=== PATIENT | male | born 1950 | race Caucasian/White ===

== ENCOUNTER 2017-01-17 15:41 | Observation (INO) | payer BC, MEDICARE ==
[2017-01-17] MEDS ORDERED: METHYLPREDNISOLONE PF 125MG/VIAL IVP ONE (15:45)
[2017-01-17] MEDS ORDERED: IPRATROPIUM/ALBUTEROL (0.5MG/3MG) NEB INH ONE (15:45)
--- NOTE | 2017-01-17 15:54 | Emergency Department Record ---
History of Present Illness - General Chief Complaint: Difficulty Breathing Stated Complaint: RADHA Time Seen by Provider: 01/17/17 15:43 Source: Patient Mode of Arrival: Wheelchair Limitations: No limitations - History of Present Illness Initial Comments: 66 yo male presents to ED with a CC of difficulty breathing that began around 1: 30 this morning. Patient reports mowing his grass last night prior to his symptoms starting. Patient deneis fevers, chills, or recent illness. 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 Patient reports recent steroid taper that ended 2-3 days ago, nebulizer at home and albuterol puffer at home have not improved his symptoms. MD Complaint: Shortness of breath Onset/Timin -: Hour(s) Severity: Severe Consistency: Constant Improves With: Nothing Worsens With: Exertion Known History Of: COPD Context: Allergen exposure Associated Symptoms: Denies other symptoms Treatments Prior to Arrival: Bronchodilator - Related Data Home Oxygen Therapy: No Home Medications Medication Instructions Recorded Confirmed Last Taken Albuterol Sulfate [Ventolin Hfa] 2 puff INH Q6H 01/17/17 01/17/17 01/17/17 Amlodipine Besylate [Norvasc] 5 mg PO DAILY 01/17/17 01/17/17 01/17/17 Aspirin 81 mg PO DAILY 01/17/17 01/17/17 01/17/17 Atorvastatin Calcium [Atorvastatin 40 mg PO DAILY 01/17/17 01/17/17 01/16/17 Calcium] Clopidogrel Bisulfate [Clopidogrel] 75 mg PO DAILY 01/17/17 01/17/17 01/16/17 Docusate Sodium [Colace] 100 mg PO ASDIR PRN 01/17/17 01/17/17 Unknown Losartan/Hydrochlorothiazide 50 mg PO DAILY 01/17/17 01/17/17 01/17/17 [Losartan-Hctz 50-12.5 mg Tab] Magnesium Oxide [Magnesium] 500 mg PO DAILY 01/17/17 01/17/17 01/17/17 Morphine Sulfate [Morphine Sulfate 15 mg PO Q6HR 01/17/17 01/17/17 01/17/17 ER] Morphine Sulfate [Morphine Sulfate 30 mg PO Q6H 01/17/17 01/17/17 01/17/17 ER] Multivitamin [Multi-Vitamin Daily] 1 each PO DAILY 01/17/17 01/17/17 01/17/17 Naproxen Sodium [Naproxen Sodium 500 mg PO BID 01/17/17 01/17/17 01/17/17 Cr] Sotalol HCl [Sotalol] 80 mg PO DAILY 01/17/17 01/17/17 01/17/17 Tiotropium [place] [Spiriva] 2 puff IN DAILY 01/17/17 01/17/17 01/17/17 Allergies Allergy/AdvReac Type Severity Reaction Status Date / Time No Known Drug Allergies Allergy Verified 01/17/17 16:22 Review of Systems Constitutional: Denies: Chills, Fever, Malaise, Night sweats Eyes: Denies: Eye discharge, Eye pain ENT: Denies: Congestion, Ear pain, Epistaxis Respiratory: Reports: Dyspnea, Wheezes. Denies: Cough Cardiovascular: Reports: Dyspnea on exertion. Denies: Chest pain Endocrine: Denies: Fatigue, Heat or cold intolerance Gastrointestinal: Denies: Abdominal pain, Nausea, Vomiting Genitourinary: Denies: Incontinence, Retention Musculoskeletal: Denies: Arthralgia, Back pain, Gout, Joint swelling Skin: Denies: Bruising, Change in color Neurological: Denies: Abnormal gait, Confusion, Headache, Seizure Psychiatric: Denies: Anxiety Hematological/Lymphatic: Denies: Anemia, Blood Clots Physical Exam - General General Appearance: Alert, Oriented x3, Cooperative, Moderate distress (moderate -severe dyspnea with audible wheezing on examination) Limitations: No limitations - Head Head exam: Atraumatic, Normocephalic, Normal inspection Head exam detail: negative: Abrasion, Contusion, Lindquist's sign, General tenderness, Hematoma - Eye Eye exam: Normal appearance. negative: Conjunctival injection, Periorbital swelling, Periorbital tenderness, Scleral icterus - ENT Ear exam: negative: Auricular hematoma, Auricular trauma Nasal Exam: negative: Active bleeding, Discharge, Dried blood, Foreign body Mouth exam: negative: Drooling, Laceration, Muffled voice, Tongue elevation - Neck Neck exam: Normal inspection. negative: Meningismus, Tenderness - Respiratory Respiratory exam: Prolonged expiratory, Respiratory distress, Wheezes - Cardiovascular Cardiovascular Exam: Regular rate, Normal rhythm, Normal heart sounds - GI/Abdominal GI/Abdominal exam: Soft. negative: Rebound, Rigid, Tenderness - Rectal Rectal exam: Deferred - exam: Deferred - Extremities Extremities exam: negative: Calf tenderness, Pedal edema, Tenderness - Back Back exam: Denies: CVA tenderness (R), CVA tenderness (L) - Neurological Neurological exam: Alert, Oriented X3 - Psychiatric Psychiatric exam: Anxious - Skin Skin exam: Normal color. negative: Abrasion Type of lesion: negative: abrasion Course - Reevaluation(s) Reevaluation #1: 01/17/17 16:04 Patient reassessed following duneb, respiratory distress is greatly improved. Will continue to monitor. Reevaluation #2: 01/17/17 16:12 EKG: NSR 80 Q waves V1, V2, no acute ST-T wave changes Normal axis, normal intervals Previous obtained from Dr. Rod, unchanged from 01/02/17 Reevaluation #3: 01/17/17 16:43 Labs reviewed, CO2 34 (likely secondary to retention), labs are otherwise grossly unremarkable for an acute process. Reevaluation #4: 01/17/17 17:21 BNP resulted 538, Troponin appears normal. Will initiate transfer for pulmonology evaluation. Reevaluation #5: 01/17/17 17:51 Case was discussed with Dr. Schmidt (Pulmonology), does not feel the patient requires transfer for consultation. Will discuss admission with Dr. Garza. Patient was updated on all results and is resting comfortably at this time on 2L NC. Case was discussed with Dr. Garza, will accept admission 01/17/17 17:55 Medical Decision Making - Lab Data Result diagrams: 01/17/17 16:10 01/17/17 16:10 Disposition Disposition: Admit Clinical Impression: COPD exacerbation Disposition: Acute Care Hospital Transfer Decision to Admit: Admit from ER Decision to Admit Date: 01/17/17 Decision to Admit Time: 17:52 Condition: (2) Stable Forms: Patient Portal Access Time of Disposition: 17:54
[2017-01-17] MEDS ORDERED: ALBUTEROL SULFATE (0.083%) 2.5 MG/3 ML NEB INH ONE (16:15)
[2017-01-17 16:20] LABS: BASO % 0.6 % (0-6); EOS % 6.4 % (0-6); GRAN % 51.9 % (47-80); HEMATOCRIT 47.6 % (42.0-52.0); HEMOGLOBIN 15.5 gm/dl (14.0-18.0); LYMPH % 31.3 % (16-45); MEAN CELL VOLUME 99.2 fl (81-97); MEAN CORPUSCULAR HEMOGLOBIN 32.3 pg (27-33); MEAN CORPUSCULAR HGB CONC 32.6 g/dl (32-36); MEAN PLATELET VOLUME 9.4 fl (7.4-10.4); MONO % 9.8 % (0-9); PLATELET COUNT 308 K/uL (130-400); WHITE BLOOD COUNT W/O DIFF 10.2 K/uL (4.2-12.2)
[2017-01-17 16:33] LABS: ALB/GLOB RATIO 1.4 (1.1-1.8); ALBUMIN 4.3 gm/dL (3.5-5.0); ALKALINE PHOSPHATASE 70 U/L (38-126); ALT/SGPT 39 U/L (21-72); ANION GAP 9.1 (7-16); AST/SGOT 30 U/L (17-59); BLOOD UREA NITROGEN 23 mg/dL (9-20); CARBON DIOXIDE 33.9 mmol/L (22-30); CREATININE 0.9 mg/dL (0.66-1.25); EST GLOMERULAR FILTRATION RATE > 60 ml/min; GLUCOSE,RANDOM 114 mg/dL (70-110); TOTAL PROTEIN 7.3 gm/dL (6.3-8.2)
[2017-01-17 17:13] LABS: TROPONIN I < 0.012 ng/mL (0.00-0.034)
[2017-01-17] MEDS ORDERED: 0.9 % SODIUM CHLORIDE 1000ML 1,000 ML IV PRN (19:42)
[2017-01-17] MEDS ORDERED: DOCUSATE SODIUM 100 MG CAPSULE PO PRN ×2 (19:42→20:30)
[2017-01-17] MEDS ORDERED: ACETAMINOPHEN 500 MG TABLET PO PRN (19:42)
[2017-01-17] MEDS ORDERED: ALBUTEROL SULFATE (0.083%) 2.5 MG/3 ML NEB INH PRN ×2 (19:42→20:02)
[2017-01-17] MEDS: IPRATROPIUM/ALBUTEROL (0.5MG/3MG) NEB INH SCH ×2 (20:43→21:08)
[2017-01-17] MEDS ORDERED: AZITHROMYCIN 500 MG in 0.9 % SODIUM CHLORIDE 250ML 250 ML IVPB SCH (21:00)
[2017-01-17] MEDS: CEFTRIAXONE SODIUM 1 GM in 0.9 % SODIUM CHLORIDE 100ML 100 ML IVPB SCH (21:48)
[2017-01-17] MEDS ORDERED: MORPHINE SULFATE 15 MG TABLET.ER PO SCH (22:00)
[2017-01-17] MEDS: SOTALOL HCL 80 MG TABLET PO SCH (22:20)
[2017-01-17] MEDS: NAPROXEN 250 MG TABLET PO SCH (22:20)
[2017-01-17] MEDS: METHYLPREDNISOLONE PF 125MG/VIAL IVP SCH (23:00)
--- NOTE | 2017-01-18 06:55 | RADIOLOGY REPORT ---
EXAM: CHEST, TWO VIEWS HISTORY: DIFFICULTY IN BREATHING. TECHNIQUE: PA and lateral views of the chest were obtained. Comparison: None. FINDINGS: Mild torsion of the aorta. The heart size is at about the upper limits of normal. No definite acute infiltrate seen and no pleural effusion or pneumothorax evident. Hypertrophic spurring in the spine. Postop changes right shoulder. There are probably multiple old right rib fractures present. IMPRESSION: 1. THE HEART SIZE IS AT ABOUT THE UPPER LIMITS OF NORMAL. 2. NO ACUTE INFILTRATE EVIDENT. 3. CHRONIC SKELETAL FINDINGS NOTED ABOVE. JOB NUMBER: [id number] [facility]
[2017-01-18] MEDS: IPRATROPIUM/ALBUTEROL (0.5MG/3MG) NEB INH SCH ×3 (06:56→14:00)
[2017-01-18] MEDS: METHYLPREDNISOLONE PF 125MG/VIAL IVP SCH (06:58)
[2017-01-18] MEDS ORDERED: MORPHINE SULFATE 30MG TABLET.ER PO SCH (08:00)
[2017-01-18] MEDS: CEFTRIAXONE SODIUM 1 GM in 0.9 % SODIUM CHLORIDE 100ML 100 ML IVPB SCH (08:13)
[2017-01-18] MEDS: SOTALOL HCL 80 MG TABLET PO SCH (09:40)
[2017-01-18] MEDS ORDERED: MAGNESIUM OXIDE 400 MG TABLET PO SCH (10:00)
[2017-01-18] MEDS ORDERED: ATORVASTATIN 20 MG TABLET PO SCH (10:00)
[2017-01-18] MEDS ORDERED: CLOPIDOGREL 75MG TABLET PO SCH (10:00)
[2017-01-18] MEDS ORDERED: AMLODIPINE BESYLATE 5MG TAB PO SCH (10:00)
[2017-01-18] MEDS ORDERED: ASPIRIN 81 MG CHEWABLE TABLET PO SCH (10:00)
[2017-01-18] MEDS ORDERED: SOTALOL HCL 80 MG TABLET PO SCH (10:00)
[2017-01-18] MEDS ORDERED: LOSARTAN POTASSIUM 25 MG TABLET PO SCH (10:00)
[2017-01-18] MEDS ORDERED: HYDROCHLOROTHIAZIDE 12.5 MG CAPSULE PO SCH (10:00)
[2017-01-18] MEDS: NAPROXEN 250 MG TABLET PO SCH (12:04)
--- NOTE | 2017-01-18 15:00 | Discharge Note ---
VTE H&P Assessment - Risk for VTE Risk for VTE: Yes Risk Level: Moderate Risk Assessment Date: 01/17/17 Risk Assessment Time: 13:00 VTE Orders Placed or Will Be Placed: Yes Discharge Medications - Discharge Medications Prescriptions: Cephalexin [Keflex] 500 mg PO QID #40 cap Prednisone [Prednisone 10Mg] 10 mg PO ASDIR #30 tab Home Medications: Ambulatory Orders Albuterol Sulfate [Ventolin Hfa] 2 puff INH Q6H 01/17/17 [Last Taken 01/17/17] Amlodipine Besylate [Norvasc] 5 mg PO DAILY 01/17/17 [Last Taken 01/17/17] Aspirin 81 mg PO DAILY 01/17/17 [Last Taken 01/17/17] Atorvastatin Calcium 40 mg PO DAILY 01/17/17 [Last Taken 01/16/17] Clopidogrel Bisulfate [Clopidogrel] 75 mg PO DAILY 01/17/17 [Last Taken 01/16/17 ] Docusate Sodium [Colace] 100 mg PO ASDIR PRN 01/17/17 [Last Taken Unknown] Losartan/Hydrochlorothiazide [Losartan-Hctz 50-12.5 mg Tab] 50 mg PO DAILY 01/17 [Last Taken 01/17/17] Magnesium Oxide [Magnesium] 500 mg PO DAILY 01/17/17 [Last Taken 01/17/17] Morphine Sulfate [Morphine Sulfate ER] 15 mg PO Q6HR 01/17/17 [Last Taken ] Morphine Sulfate [Morphine Sulfate ER] 30 mg PO Q6H 01/17/17 [Last Taken ] Multivitamin [Multi-Vitamin Daily] 1 each PO DAILY 01/17/17 [Last Taken 01/17/17 ] Naproxen Sodium [Naproxen Sodium Cr] 500 mg PO BID 01/17/17 [Last Taken 01/17/17 ] Sotalol HCl [Sotalol] 80 mg PO BID 01/17/17 [Last Taken 01/17/17] Tiotropium [place] [Spiriva] 2 puff IN DAILY 01/17/17 [Last Taken 01/17/17] Acetaminophen [Tylenol 500Mg Tab] 1,000 mg PO Q6H PRN 01/18/17 [Last Taken Unknown] Albuterol Sulfate 0.083% [Neb] 2.5 mg INH RESP.Q2H PRN neb 01/18/17 [Last Taken Unknown] Cephalexin [Keflex] 500 mg PO QID #40 cap 01/18/17 [Last Taken Unknown] Prednisone [Prednisone 10Mg] 10 mg PO ASDIR #30 tab 01/18/17 [Last Taken Unknown ] Discharge Note - Date Date of Discharge Note: 01/18/17 Condition: (2) Stable Forms: Patient Portal Access
[2017-01-18] MEDS ORDERED: ENOXAPARIN 40 MG/0.4 ML SYR SQ SCH (22:00)
--- NOTE | 2017-01-21 10:42 | History and Physical Report ---
DATE OF EVALUATION: 01/17/2017 at 7:36 p.m. DATE OF ADMISSION: 01/17/2017 CHIEF COMPLAINT: Dyspnea. HISTORY OF CHIEF COMPLAINT: This 66-year-old male states he had difficulty breathing for the last couple of hours, more so in the last hour. He came in to the Emergency Department with audible wheezing. He reports no other illness; however, in the last 3 weeks he was seen twice at [facility] ER for dyspnea and treated with antibiotics and steroids. Patient was seen in the Emergency Department by Dr. Casillas and admitted to the hospital with a diagnosis of acute exacerbation of COPD and acute bronchitis. His primary doctor is Dr. Lizzie Fuller. Dr. Schmidt was consulted by phone. He felt the patient could stay here and he could follow up as an outpatient. PAST MEDICAL HISTORY: COPD, chronic back pain. He has had rhizotomies, and he is on narcotics with his chronic back pain. He also has had episodes of atrial fibrillation and ablation x 2, and that is the reason he is on sotalol. He has hypertension and hypercholesterolemia. He has had a heart cath in 2009, and bladder cancer, degenerative joint disease. PAST SURGICAL HISTORY: Tonsillectomy in 1954. Two hernia repairs. Hemorrhoidectomy. Bilateral carpal tunnel. Right shoulder surgery. MEDICATIONS ON ADMISSION: Sotalol 80 mg b.i.d., multivitamins 1 daily, magnesium 500 mg daily, Colace 100 mg daily, aspirin 81 mg daily. Morphine sulfate extended release he has 15 mg at noon and bedtime, 30 mg in the morning and at dinnertime. Ventolin 2 puffs every 6 hours p.r.n. Atorvastatin 40 mg daily. Amlodipine 5 mg daily. Losartan/hydrochlorothiazide 50/12.5 one daily. Plavix 75 mg daily. Naprosyn 500 mg b.i.d. Spiriva 2 puffs daily. ALLERGIES: No known drug allergies. FAMILY PSYCHOSOCIAL HISTORY: He is a former smoker of cigarettes. Stopped in 1978, about a 20 pack-year history. Occasional alcohol use. No drug use. FAMILY HISTORY: Father had heart disease. REVIEW OF SYSTEMS: HEENT: No upper respiratory infection symptoms, cough, cold, or congestion. He does not know what triggered this. It possibly could be cutting the grass this morning. No sore throat or congestion. No epistaxis. Cardiovascular: No chest pain, palpitations, or arrhythmias. Respiratory: Cough, cold, and wheezing. Smoking history 1979 quit. Gastrointestinal: No nausea, vomiting, diarrhea, black stools, or bloody stools. Genitourinary: No dysuria, hematuria, frequency, or burning on urination. Musculoskeletal: He has chronic back pain. He has had rhizotomies and injections, and he is now on narcotics chronically for that. Neurologic: No CVA, paralysis, or paresthesias. Endocrine: No diabetes or thyroid disease. Integument: No rash, ulcers, changes in moles, or yellow skin. PHYSICAL EXAMINATION: VITAL SIGNS: Height is 5'10". Weight 250 pounds. Temperature 97.8. Pulse 75. Blood pressure 120/65. Respiratory rate is 16. Pulse ox 94% on 2 liters nasal cannula. HEENT: Pupils equal, round, and reactive to light and accommodation. Extraocular muscles intact. Throat is clear. Nose is clear. Tympanic membranes [place]. NECK: Supple. No jugular venous distention. No hepatojugular reflux. No carotid bruits. Thyroid is smooth. CARDIOVASCULAR: Regular rate and rhythm without murmurs, clicks, rubs, or gallops. RESPIRATORY: Decreased breath sounds bilaterally. Scant wheezing. ABDOMEN: Soft, nontender, no hepatosplenomegaly. No masses or tenderness. Bowel sounds active. EXTREMITIES: No pitting edema. No cyanosis or clubbing. Full range of motion. Peripheral pulses good. BREASTS: Normal male breasts. GENITALIA: Deferred. RECTAL: Deferred. NEUROLOGIC: Cranial nerves II-XII intact. No gross deficits. Sensation normal. Strength normal. Deep tendon reflexes equal bilaterally. Babinski is negative. MENTAL STATUS: Alert and oriented x3. IMPRESSION: 1. Acute bronchitis. 2. COPD exacerbation. 3. Chronic back pain, using narcotics, morphine sulfate extended release alternating between 15 and 30 mg every 6 hours. PLAN: Rocephin IV 1 gram every 12 hours. Azithromycin 500 mg daily. Solu-Medrol 60 mg every 8 hours. Lovenox 40 mg subcu daily. CERTIFICATE OF NEED: Not necessary because he is an Observation patient at this time. [facility]
--- NOTE | 2017-01-21 10:46 | Discharge Summary ---
DATE OF DISCHARGE: 01/18/2017 at 3 p.m. It is an observation patient. DISCHARGE DIAGNOSES: 1. Acute bronchitis. 2. Acute exacerbation of chronic obstructive pulmonary disease. 3. Chronic back pain and on narcotics. 4. History of atrial fibrillation with ablation therapy and on sotalol. 5. Hypertension. 6. Hypercholesterolemia. 7. Osteoarthritis. REASON FOR HOSPITALIZATION: This is a 66-year-old male who presented to the emergency department with difficulty breathing about 1:30 in the morning. He reports he was mowing the grass last night prior to his symptoms starting. The patient denies fever, chills, or recent illness. Does have a history of COPD for 2 years and has had 2 exacerbations in the past few weeks. 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 The patient reports recent steroid taper that ended 2-3 days ago. Nebulizer at home and albuterol puffer at home have not improved his symptoms. He was given IV Solu-Medrol, started on Rocephin and azithromycin, admitted to the hospital. He is much better on the day of discharge. SIGNIFICANT FINDINGS: Chest x-ray showed the heart size is about the upper limits of normal, no acute infiltrate evident, chronic skeletal findings as noted above. The EKG showing no acute abnormalities, normal sinus rhythm. Laboratory with white count 10,200, hemoglobin 15.5, potassium 4.0, troponin normal at 0.012. His brain natriuretic peptide was normal for his age at 538. THERAPY PROVIDED: The patient was given IV Rocephin x2 or 3 doses, azithromycin 500 mg x2 doses once a day, and he is feeling much better. Solu-Medrol was 60 mg q.8 h. and 125 in the emergency department. HOSPITAL COURSE: We are going to switch him over to oral Keflex 500 mg 4 times a day. Because he was recently on azithromycin, I have decided not to go with another dose or course of azithromycin. We will just go with Keflex 4 times a day and prednisone taper at 40 mg a day for 3 days, 30 mg a day for 3 days, 20 mg a day for 3 days, and 10 mg a day for 3 days. Continue his home medications and follow up with Dr. Fuller. He has an appointment on Monday. He also has a pulmonology appointment on 02/13/2017. I encouraged him to keep those appointments. CC: Lizzie WHITING
== END 2017-01-18 15:35 | disposition home or self-care (01) ==
LOC: ER 15:41 → MEDSURG 18:24
PROVIDERS: ADMIT Emergency Medicine; ATTEND Emergency Medicine
DX: J44.1 Chronic obstructive pulmonary disease with (acute) exacerbation (principal); I10 Essential (primary) hypertension; E78.00 Pure hypercholesterolemia, unspecified; G89.29 Other chronic pain; M54.89 Other dorsalgia
CPT/HCPCS: 93041; 99285 ×2; 94760 ×3; 96374; 85025; 84484; 80053; 83880; 71020; 94640 ×3; 94620; 93005; 93010; G0378 ×2; J3490; 99217; 99220; J0456; J2930; J7050; J7613

== ENCOUNTER 2017-02-03 23:55 | Observation (INO) | payer MEDICARE ==
--- NOTE | 2017-02-04 00:06 | Emergency Department Record ---
History of Present Illness - General Chief Complaint: Shortness of breath Stated Complaint: SOB Time Seen by Provider: 02/04/17 00:05 Source: Patient Mode of Arrival: Ambulatory Limitations: No limitations - History of Present Illness Initial Comments: The patient is here due to having a 2 day hx of SOB. He feels like he cannot get air out and is SOB with walking and wheezy. The patient denies any CP or any chest or back discomfort or any recent cough or congestion. He states this is the 4th episode for this same thing in the last 2 months. He does have a dx of COPD but quit smoking 30 years ago and has not seen a meeting specialist. MD Complaint: Shortness of breath Onset/Timin -: Days(s) Severity: Moderate Improves With: Rest Worsens With: Exertion - Related Data Home Medications Medication Instructions Recorded Confirmed Last Taken Albuterol Sulfate [Ventolin Hfa] 2 puff INH Q6H 01/17/17 02/03/17 01/17/17 Amlodipine Besylate [Norvasc] 5 mg PO DAILY 01/17/17 02/03/17 01/17/17 Aspirin 81 mg PO DAILY 01/17/17 02/03/17 01/17/17 Atorvastatin Calcium 40 mg PO DAILY 01/17/17 02/03/17 01/16/17 Clopidogrel Bisulfate [Clopidogrel] 75 mg PO DAILY 01/17/17 02/03/17 01/16/17 Docusate Sodium [Colace] 100 mg PO ASDIR PRN 01/17/17 02/03/17 Unknown Losartan/Hydrochlorothiazide 50 mg PO DAILY 01/17/17 02/03/17 01/17/17 [Losartan-Hctz 50-12.5 mg Tab] Magnesium Oxide [Magnesium] 500 mg PO DAILY 01/17/17 02/03/17 01/17/17 Morphine Sulfate [Morphine Sulfate 15 mg PO Q6HR 01/17/17 02/03/17 01/17/17 ER] Morphine Sulfate [Morphine Sulfate 30 mg PO Q6H 01/17/17 02/03/17 01/17/17 ER] Multivitamin [Multi-Vitamin Daily] 1 each PO DAILY 01/17/17 02/03/17 01/17/17 Naproxen Sodium [Naproxen Sodium 500 mg PO BID 01/17/17 02/03/17 01/17/17 Cr] Sotalol HCl [Sotalol] 80 mg PO BID 01/17/17 02/03/17 01/17/17 Tiotropium [place] [Spiriva] 2 puff IN DAILY 01/17/17 02/03/17 01/17/17 Previous Rx's Medication Instructions Recorded Acetaminophen [Tylenol 500Mg Tab] 1,000 mg PO Q6H PRN 01/18/17 Albuterol Sulfate 0.083% [Neb] 2.5 mg INH RESP.Q2H PRN neb 01/18/17 Cephalexin [Keflex] 500 mg PO QID #40 cap 01/18/17 Prednisone [Prednisone 10Mg] 10 mg PO ASDIR #30 tab 01/18/17 Allergies Allergy/AdvReac Type Severity Reaction Status Date / Time No Known Drug Allergies Allergy Verified 02/03/17 23:58 Review of Systems Constitutional: Denies: Chills, Fever Eyes: Denies: Eye discharge ENT: Denies: Congestion Respiratory: Reports: Dyspnea, Wheezes. Denies: Cough, Hemoptysis, Stridor Cardiovascular: Denies: Arrhythmia, Chest pain Past Medical History - SOCIAL HISTORY Smoking Status: Former smoker Drug Use: None - RESPIRATORY Hx Respiratory Disorders: Yes Hx COPD: Yes - CARDIOVASCULAR Hx Cardiac Cath: Yes Hx Heart Attack: Yes (2009 last) - NEURO Hx Neuro Disorders: No - GI Hx GI Disorders: No - Hx Genitourinary Disorders: Yes Hx Bladder Problem: Yes (Cancer) - ENDOCRINE Hx Endocrine Disorders: No - MUSCULOSKELETAL Hx Musculoskeletal Disorders: Yes - HEMATOLOGY/ONCOLOGY Hx Hematology/Oncology Disorders: No Hx Cancer: Yes (Bladder) Family Medical History Hx Cancer: Brother/Sister Hx Heart Disease: Father, Brother/Sister Physical Exam - General General Appearance: Alert, Oriented x3, Cooperative, No acute distress - Head Head exam: Atraumatic, Normocephalic, Normal inspection - Eye Eye exam: Normal appearance, PERRL - ENT Throat exam: Normal inspection. negative: Tonsillar erythema, Tonsillar exudate - Neck Neck exam: Normal inspection, Full ROM. negative: Tenderness - Respiratory Respiratory exam: Wheezes. negative: Normal lung sounds bilaterally, Accessory muscle use, Decreased breath sounds, Respiratory distress - Cardiovascular Cardiovascular Exam: Regular rate, Normal rhythm, Normal heart sounds - GI/Abdominal GI/Abdominal exam: Soft, Normal bowel sounds. negative: Tenderness - Extremities Extremities exam: Normal inspection, Full ROM, Normal capillary refill. negative: Tenderness - Neurological Neurological exam: Alert, Normal gait. negative: Abnormal gait, Motor sensory deficit - Psychiatric Psychiatric exam: negative: Anxious, Depressed Course Vital Signs 02/04/17 00:04 Temperature 98.1 F Pulse Rate [ 91 H Pulse Ox Probe] Respiratory 24 Rate Blood Pressure 132/66 [Left Arm] Pulse Ox 93 L - Reevaluation(s) Reevaluation #1: The patient is doing better. He no longer is audibly wheezing and states his SOB is gone. He also denies any CP or back pain. 02/04/17 00:49 Reevaluation #2: The patient is doing better but is still mildly wheezing at times on lung exam. He denies any CP or chest discomfort. Due to the persistent wheezing I do feel it is safe-est to admit the patient to the hospital overnight and the patient agrees. 02/04/17 01:36 Medical Decision Making - Data Complexity MDM Data: Labs Ordered and/or Reviewed, X-Ray Ordered and/or Reviewed, EKG Ordered and/or Reviewed - Lab Data Result diagrams: 02/04/17 00:25 02/04/17 00:25 - EKG Data -: EKG Interpreted by Me EKG: No Acute Changes, Unchanged From Previous - Radiology Data Radiology results: Report reviewed (CXR: Neg for CHF or infiltrate.) Disposition Disposition: Admit Clinical Impression: COPD exacerbation Disposition: Still a Patient at [facility] Decision to Admit: Admit from ER Decision to Admit Date: 02/04/17 Decision to Admit Time: 01:37 Accepting Physician: April Time Discussed w/Accepting Physician: 01:37 Condition: (2) Stable Forms: Patient Portal Access Time of Disposition: 01:38
[2017-02-04] MEDS ORDERED: IPRATROPIUM/ALBUTEROL (0.5MG/3MG) NEB INH ONE (00:16)
[2017-02-04] MEDS ORDERED: METHYLPREDNISOLONE PF 125MG/VIAL IVP ONE (00:16)
[2017-02-04 00:35] LABS: BASO % 0.8 % (0-6); EOS % 4.4 % (0-6); HEMATOCRIT 44.3 % (42.0-52.0); HEMOGLOBIN 14.1 gm/dl (14.0-18.0); LYMPH % 40.2 % (16-45); MEAN CELL VOLUME 98.9 fl (81-97); MEAN CORPUSCULAR HEMOGLOBIN 31.5 pg (27-33); MEAN CORPUSCULAR HGB CONC 31.8 g/dl (32-36); MEAN PLATELET VOLUME 9.5 fl (7.4-10.4); MONO % 11.6 % (0-9); PLATELET COUNT 313 K/uL (130-400); RED BLOOD COUNT 4.48 M/uL (4.40-5.70); RED CELL DISTRIBUTION WIDTH 13.5 % (11.5-14.5); WHITE BLOOD COUNT W/O DIFF 7.3 K/uL (4.2-12.2)
[2017-02-04 00:46] LABS: INR 0.89; PARTIAL THROMBOPLASTIN TIME 27.1 SECONDS (24.5-39.1); PROTHROMBIN TIME (PATIENT) 10.1 SECONDS (9.5-12.1)
[2017-02-04 01:05] LABS: ANION GAP 5.7 (7-16); BLOOD UREA NITROGEN 18 mg/dL (9-20); CARBON DIOXIDE 30.3 mmol/L (22-30); CREATINE PHOSPHOKINASE 68 U/L (55-170); CREATININE 0.8 mg/dL (0.66-1.25); EST GLOMERULAR FILTRATION RATE > 60 ml/min; GLUCOSE,RANDOM 136 mg/dL (70-110)
[2017-02-04 01:17] LABS: CKMB 2.3 ug/L (0-6)
[2017-02-04] MEDS ORDERED: ALBUTEROL SULFATE (0.083%) 2.5 MG/3 ML NEB INH ONE (01:21)
[2017-02-04 01:22] LABS: TROPONIN I < 0.012 ng/mL (0.00-0.034)
[2017-02-04] MEDS ORDERED: ACETAMINOPHEN 500 MG TABLET PO PRN (02:08)
[2017-02-04] MEDS ORDERED: IPRATROPIUM/ALBUTEROL (0.5MG/3MG) NEB INH SCH (06:00)
[2017-02-04] MEDS ORDERED: MORPHINE SULFATE 15 MG TABLET.ER PO SCH (06:00)
[2017-02-04] MEDS: MORPHINE SULFATE 30MG TABLET.ER PO SCH ×2 (06:20→11:14)
[2017-02-04 06:25] LABS: BASO % 0.4 % (0-6); EOS % 0.1 % (0-6); HEMATOCRIT 44.9 % (42.0-52.0); HEMOGLOBIN 14.2 gm/dl (14.0-18.0); LYMPH % 13.5 % (16-45); MEAN CELL VOLUME 98.5 fl (81-97); MEAN CORPUSCULAR HEMOGLOBIN 31.1 pg (27-33); MEAN CORPUSCULAR HGB CONC 31.6 g/dl (32-36); MEAN PLATELET VOLUME 9.7 fl (7.4-10.4); MONO % 0.9 % (0-9); PLATELET COUNT 308 K/uL (130-400); RED BLOOD COUNT 4.56 M/uL (4.40-5.70); RED CELL DISTRIBUTION WIDTH 13.4 % (11.5-14.5); WHITE BLOOD COUNT W/O DIFF 7.4 K/uL (4.2-12.2)
[2017-02-04 06:35] LABS: ALB/GLOB RATIO 1.3 (1.1-1.8); ALBUMIN 3.7 gm/dL (3.5-5.0); ALKALINE PHOSPHATASE 68 U/L (38-126); ALT/SGPT 32 U/L (21-72); ANION GAP 7.8 (7-16); AST/SGOT 23 U/L (17-59); BILIRUBIN,TOTAL 0.41 mg/dL (0.2-1.3); BLOOD UREA NITROGEN 20 mg/dL (9-20); CARBON DIOXIDE 29.2 mmol/L (22-30); CREATININE 0.7 mg/dL (0.66-1.25); EST GLOMERULAR FILTRATION RATE > 60 ml/min; GLUCOSE,RANDOM 165 mg/dL (70-110); TOTAL PROTEIN 6.5 gm/dL (6.3-8.2)
[2017-02-04 06:41] LABS: PLATELET ESTIMATE NORMAL (NORMAL)
[2017-02-04] MEDS ORDERED: LEVOFLOXACIN 500 MG TABLET PO SCH (09:00)
--- NOTE | 2017-02-04 09:11 | History & Physical ---
History of Present Illness - Date of Service Date of Service for History & Physical: 02/04/17 - History of Present Illness Admitting Diagnosis: 1. Acute COPD Exacerbation. History of Present Illness: 66 y/o male with CC shortness of breath and wheezing admitted with exacerbation of COPD. Past medical history includes COPD, cardiac cath, chest pain, [place] 2010, HTN, palpitations, neuropathy, GERD, bladder cancer, arthritis, melanoma, back injury Past Surgical History Tonsillecotomy - 1955 2 Hernia Repairs Hemmoroidectomy Bilateral Carpal Tunnel Right shoulder surgery Right hip - torn labrum 5 cardiac caths 2 ablasions 3 bladder biopsies Nasal deviated septum 3 shoulder 2 rt elbow rt hip melenoma surgery Prior to arrival had 2 day history of shortness of breath, felt he could breathe in but not expel all the air from his longs. Quit smoking 30 years ago. Has new patient appointment with pulmonololgy February 13. Denies any recent illness , fever, increased sputum production, or increased cough. Reports this is his 4th ER visit in 1 month for shortness of breath. The first 3 were 6-8 hours after mowing the lawn, had difficulty getting air in, was wheezing quite a bit. This last episode was sitting on the deck, the weather was hot and humid and felt he had a hard time breathing all the air out. Does not use home O2. Reports he had a full cardiac work up due to frequency of ED visits and was normal. While in the ED given nebulizer treatments, IV steroids initiated with improvement of symptoms. Denies any chest pain or discomfort. Remained afebrile with normal WBC. Admitted for obs as he continued to have some wheezing and frequency of ER visit for same symptoms. Laboratory Results WBC 7.4 K/uL (4.2-12.2) 02/04/17 06:05 RBC 4.56 M/uL (4.40-5.70) 02/04/17 06:05 Hgb 14.2 gm/dl (14.0-18.0) 02/04/17 06:05 Hct 44.9 % (42.0-52.0) 02/04/17 06:05 MCV 98.5 fl (81-97) H 02/04/17 06:05 MCH 31.1 pg (27-33) 02/04/17 06:05 MCHC 31.6 g/dl (32-36) L 02/04/17 06:05 RDW 13.4 % (11.5-14.5) 02/04/17 06:05 Plt Count 308 K/uL (130-400) 02/04/17 06:05 MPV 9.7 fl (7.4-10.4) 02/04/17 06:05 Gran % 43.0 % (47-80) L 02/04/17 00:25 Neutrophils % 83.0 % (47-80) H 02/04/17 06:05 Lymphocytes % 13.5 % (16-45) L 02/04/17 06:05 Monocytes % 0.9 % (0-9) 02/04/17 06:05 Eosinophils % 0.1 % (0-6) 02/04/17 06:05 Basophils % 0.4 % (0-6) 02/04/17 06:05 Lymphocytes 14.0 % (16-45) L 02/04/17 06:05 Monocytes 3.0 % (0-9) 02/04/17 06:05 Platelet Estimate Normal (NORMAL) 02/04/17 06:05 RBC Morphology Normal 02/04/17 06:05 PT 10.1 SECONDS (9.5-12.1) 02/04/17 00:25 INR 0.89 02/04/17 00:25 APTT 27.10 SECONDS (24.5-39.1) 02/04/17 00:25 Sodium 142 mmol/L (136-145) 02/04/17 06:05 Potassium 4.0 mmol/L (3.5-5.1) 02/04/17 06:05 Chloride 105 mmol/L (98-107) 02/04/17 06:05 Carbon Dioxide 29.2 mmol/L (22-30) 02/04/17 06:05 Anion Gap 7.8 (7-16) 02/04/17 06:05 BUN 20 mg/dL (9-20) 02/04/17 06:05 Creatinine 0.7 mg/dL (0.66-1.25) 02/04/17 06:05 Estimated GFR > 60 ml/min 02/04/17 06:05 Random Glucose 165 mg/dL (70-110) H 02/04/17 06:05 Calcium 8.7 mg/dL (8.5-10.1) 02/04/17 06:05 Total Bilirubin 0.41 mg/dL (0.2-1.3) 02/04/17 06:05 AST 23 U/L (17-59) 02/04/17 06:05 ALT 32 U/L (21-72) 02/04/17 06:05 Alkaline Phosphatase 68 U/L (38-126) 02/04/17 06:05 Creatine Kinase 68 U/L (55-170) 02/04/17 00:25 CK-MB (CK-2) 2.3 ug/L (0-6) 02/04/17 00:25 Troponin I < 0.012 ng/mL (0.00-0.034) 02/04/17 00:25 NT-Pro-B Natriuret Pep 349.00 pg/mL (<125) H 02/04/17 00:25 Total Protein 6.5 gm/dL (6.3-8.2) 02/04/17 06:05 Albumin 3.7 gm/dL (3.5-5.0) 02/04/17 06:05 Globulin 2.8 gm/dL (1.4-4.8) 02/04/17 06:05 Albumin/Globulin Ratio 1.3 (1.1-1.8) 02/04/17 06:05 Vital Signs - Last 24 Hrs Temp Pulse Pulse Resp BP BP Pulse Ox 02/04/17 06:13 90 18 93 L 02/04/17 02:44 18 02/04/17 02:08 98.6 F 85 114/83 94 L 02/04/17 01:51 98.1 F 80 18 117/75 95 02/04/17 01:24 87 18 95 02/04/17 00:49 87 20 95 02/04/17 00:20 86 20 02/04/17 00:04 98.1 F 91 H 24 132/66 93 L 02/04/17- resting in bed comfortably. Reports his breathing has improved " a ton ", no further wheezing. Is slightly short of breath with ambulation but tolerated a walk in the jones with respiratory therapy. Does have a nebulizer at home and is already taking Spiriva. Denies any further complaint. No new nursing concerns. PCP: Dr Rod Baked [employer] Inspector- pending Travel Screening - Travel/Exposure Within Last 30 Days Have you traveled within the last 30 days?: No - Travel/Exposure Within Last Year Have you traveled outside the [place] in the last year?: No - Additonal Travel Details Have you been exposed to anyone with a communicable illness?: No - Travel Symptoms Symptom Screening: None Review of Systems Constitutional: Denies: Chills, Fever Eyes: Denies: Eye discharge ENT: Denies: Congestion Respiratory: Reports: Dyspnea, Wheezes. Denies: Cough, Hemoptysis, Stridor Cardiovascular: Denies: Arrhythmia, Chest pain Past Medical History - SOCIAL HISTORY Smoking Status: Former smoker Alcohol Use: Occassional Drug Use: None - RESPIRATORY Hx Respiratory Disorders: Yes Hx COPD: Yes - CARDIOVASCULAR Hx Cardio Disorders: Yes Hx Abnormal EKG: No Hx Cardiac Cath: Yes Hx Chest Pain: Yes Hx CHF: No Hx Deep Vein Thrombosis: No Hx Edema: No Hx Heart Attack: Yes (2009 last) Hx Hypertension: Yes Hx Hypotension: No Hx Irregular Heartbeat: No Hx Palpitations: Yes Hx Pacemaker/Defib: No Hx Vascular Disease: No - NEURO Hx Neuro Disorders: No Hx CVA: No Hx Dementia: No Hx Dizziness: No Hx Headaches: No Hx Neuropathy: Yes Hx Parkinson's Disease: No Hx Seizures: No Hx Speech Problem: No Hx TIA: No - GI Hx GI Disorders: No Hx Abdominal Pain: No Hx Celiac Disease: No Hx Crohn's Disease: No Hx Diverticulitis: No Hx GI Bleed: No Hx Reflux: Yes Hx Hepatitis/Jaundice: No Hx Hiatal Hernia: No Hx Irritable Bowel: No Hx Liver Disease: No Hx Nausea/Vomiting: No Hx Obstructive Bowel: No Hx Pancreatitis: No Hx Rectal Bleeding: No Hx Ulcer: No Hx Wt Loss/Wt Gain: No Hx of Polyps: No - Hx Genitourinary Disorders: Yes Hx Bladder Problem: Yes (Cancer) Hx Dialysis: No Hx Kidney Stones: No Hx Prostate Problems: No Hx Renal Disease: No Hx UTI: No - ENDOCRINE Hx Endocrine Disorders: No Hx Diabetes: No Hx Thyroid Disease: No - MUSCULOSKELETAL Hx Musculoskeletal Disorders: Yes Hx Arthritis: Yes Hx Back Injury: Yes Hx Fibromyalgia: No Hx Gout: No Hx Musculoskeletal Disease: No Hx Osteoporosis: No - PSYCH Hx Psych Problems: No Hx Anxiety: No Hx Behavior Problems: No Hx Depression: No Hx Emotional Abuse: No Hx Sexual Abuse: No Hx Suicide Attempt: No Major Depressive Episode: No Feelings of Hopelessness: No - HEMATOLOGY/ONCOLOGY Hx Hematology/Oncology Disorders: No Hx Cancer: Yes (Bladder) Family Medical History Any Significant Family History?: No Hx Cancer: Brother/Sister Hx Heart Disease: Father, Brother/Sister H&P Meds/Allergies - Allergies Allergies: Allergies Allergy/AdvReac Type Severity Reaction Status Date / Time No Known Drug Allergies Allergy Verified 02/03/17 23:58 - Home Medications Home Medications Medication Instructions Recorded Confirmed Last Taken Albuterol Sulfate [Ventolin Hfa] 2 puff INH Q6H 01/17/17 02/03/17 01/17/17 Amlodipine Besylate [Norvasc] 5 mg PO DAILY 01/17/17 02/03/17 01/17/17 Aspirin 81 mg PO DAILY 01/17/17 02/03/17 01/17/17 Atorvastatin Calcium 40 mg PO DAILY 01/17/17 02/03/17 01/16/17 Clopidogrel Bisulfate [Clopidogrel] 75 mg PO DAILY 01/17/17 02/03/17 01/16/17 Docusate Sodium [Colace] 100 mg PO ASDIR PRN 01/17/17 02/03/17 Unknown Losartan/Hydrochlorothiazide 50 mg PO DAILY 01/17/17 02/03/17 01/17/17 [Losartan-Hctz 50-12.5 mg Tab] Magnesium Oxide [Magnesium] 500 mg PO DAILY 01/17/17 02/03/17 01/17/17 Morphine Sulfate [Morphine Sulfate 15 mg PO Q6HR 01/17/17 02/03/17 01/17/17 ER] Morphine Sulfate [Morphine Sulfate 30 mg PO Q6H 01/17/17 02/03/17 01/17/17 ER] Multivitamin [Multi-Vitamin Daily] 1 each PO DAILY 01/17/17 02/03/17 01/17/17 Naproxen Sodium [Naproxen Sodium 500 mg PO BID 01/17/17 02/03/17 01/17/17 Cr] Sotalol HCl [Sotalol] 80 mg PO BID 01/17/17 02/03/17 01/17/17 Tiotropium [place] [Spiriva] 2 puff IN DAILY 01/17/17 02/03/17 01/17/17 Previous Rx's Medication Instructions Recorded Acetaminophen [Tylenol 500Mg Tab] 1,000 mg PO Q6H PRN 01/18/17 Albuterol Sulfate 0.083% [Neb] 2.5 mg INH RESP.Q2H PRN neb 01/18/17 Cephalexin [Keflex] 500 mg PO QID #40 cap 01/18/17 Prednisone [Prednisone 10Mg] 10 mg PO ASDIR #30 tab 01/18/17 - Active Medications Active Medications: Current Medications Acetaminophen (Tylenol 500mg Tab) 500 mg PO Q6H PRN PRN Reason: PAIN/TEMP Albuterol Sulfate () 2.5 mg INH RESP.Q4H.WA [facility] Amlodipine Besylate (Norvasc) 5 mg PO DAILY [facility] Aspirin (Aspirin Chewable) 81 mg PO DAILY [facility] Atorvastatin Calcium (Lipitor) 40 mg PO DAILY [facility] Clopidogrel Bisulfate (Plavix) 75 mg PO DAILY [facility] Docusate Sodium (Colace) 100 mg PO BID PRN PRN Reason: Constipation Fluticasone Propionate (Flovent 110 Mcg) 1 puff INH RESP.Q12H [facility] Hydrochlorothiazide (Hctz 12.5mg) 12.5 mg PO DAILY [facility] Levofloxacin (Levaquin Tab) 500 mg PO DAILYFLUOR [facility] Losartan Potassium (Cozaar) 50 mg PO DAILY [facility] Magnesium Oxide (Mag Ox) 400 mg PO DAILY [facility] Methylprednisolone Sodium Succinate (Solu-Medrol) 60 mg IVP DAILY [facility] Montelukast Sodium (Singulair) 10 mg PO QHS [facility] Morphine Sulfate () 30 mg PO Q6H [facility] Last Admin: 02/04/17 06:20 Dose: 30 mg Morphine Sulfate (Ms Contin) 15 mg PO Q6HR [facility] Last Admin: 02/04/17 06:18 Dose: Not Given Sotalol HCl (Betapace) 80 mg PO BID [facility] Tiotropium [place] (Spiriva) 1 cap INH DAILY [facility] Physical Exam - Vital Signs Vital Signs: Vital Signs - Last 24 Hrs Temp Pulse Pulse Resp BP Pulse Ox 02/04/17 06:13 90 18 93 L 02/04/17 02:44 18 02/04/17 02:08 98.6 F 85 114/83 94 L - General General Appearance: Alert, Oriented x3, Cooperative, No acute distress Limitations: No limitations - Head Head exam: Atraumatic, Normocephalic, Normal inspection - Eye Eye exam: Normal appearance, PERRL - ENT ENT exam: Normal exam, Mucous membranes moist, Normal external ear exam, Normal orophraynx, TM's normal bilaterally Ear exam: Normal external inspection. negative: External canal tenderness Nasal Exam: Normal inspection. negative: Discharge, Sinus tenderness Mouth exam: Normal external inspection, Tongue normal Teeth exam: Normal inspection. negative: Dental caries Throat exam: Normal inspection. negative: Tonsillar erythema, Tonsillar exudate - Neck Neck exam: Normal inspection, Full ROM. negative: Tenderness - Respiratory Respiratory exam: Normal lung sounds bilaterally, Decreased breath sounds ( bilat bases). negative: Accessory muscle use, Respiratory distress, Wheezes - Cardiovascular Cardiovascular Exam: Regular rate, Normal rhythm, Normal heart sounds Peripheral Pulses: 2+: Dorsalis Pedis (R), Dorsalis Pedis (L) - GI/Abdominal GI/Abdominal exam: Soft, Normal bowel sounds. negative: Tenderness - Extremities Extremities exam: Normal inspection, Full ROM, Normal capillary refill. negative: Tenderness - Neurological Neurological exam: Alert, CN II-XII intact, Normal gait, Oriented X3. negative : Abnormal gait, Motor sensory deficit - Psychiatric Psychiatric exam: negative: Anxious, Depressed - Skin Skin exam: Dry, Intact, Normal color, Warm, Other (healing incision left upper back from recent removal of melanoma, sutures intact) Results - Labs Result Diagrams: 02/04/17 06:05 02/04/17 06:05 Labs Last 24 Hours: Laboratory Results - last 24 hr 02/04/17 02/04/17 06:05 06:05 WBC 7.4 RBC 4.56 Hgb 14.2 Hct 44.9 MCV 98.5 H MCH 31.1 MCHC 31.6 L RDW 13.4 Plt Count 308 MPV 9.7 Neutrophils % 83.0 H Lymphocytes % 13.5 L Monocytes % 0.9 Eosinophils % 0.1 Basophils % 0.4 Lymphocytes 14.0 L Monocytes 3.0 Platelet Estimate Normal RBC Morphology Normal Sodium 142 Potassium 4.0 Chloride 105 Carbon Dioxide 29.2 Anion Gap 7.8 BUN 20 Creatinine 0.7 Estimated GFR > 60 Random Glucose 165 H Calcium 8.7 Total Bilirubin 0.41 AST 23 ALT 32 Alkaline Phosphatase 68 Total Protein 6.5 Albumin 3.7 Globulin 2.8 Albumin/Globulin Ratio 1.3 - Imaging and Cardiology Chest x-ray Status: Report reviewed (negative for CHF or infiltrate) VTE H&P Assessment - Risk for VTE Risk for VTE: Yes Risk Level: Low Risk Assessment Date: 02/04/17 Risk Assessment Time: 09:13 VTE Orders Placed or Will Be Placed: Yes Plan - Detailed Diagnosis and Plan (1) COPD exacerbation Current Visit: Yes Status: Acute Base Code: J44.1 - CHRONIC OBSTRUCTIVE PULMONARY DISEASE W (ACUTE) EXACERBATION Comment: 02/04/17- 66 y/o male admitted with exac COPD, 4th ED visit in 1 month for shortness of breath. CXR negative for acute process. Labs unremarkable. Responded well to breathing treatment and IV steroids. O2 remains> 88% on RA. Given presentation of symptoms after mowing lawn and outside in hot and humid temperatues with airway resistance, this may represent an asthma component of his COPD with a reactive airway to inhaled irritants such as grass and pollen. - will initate Singulair 10mg - will initate inhaled steroid - continue LAMA - follow up with pulmonology as new patient as scheduled 02/13 - COPD pathway initiated, wll change to oral steroids at time of discharge - may discharge later today should he remain stable - follow up PCP 1-2 weeks after discharge (2) DVT prophylaxis Current Visit: Yes Status: Acute Base Code: [id number] - Comment: 02/04/17- nursing to encourage frequent ambulation (3) Full code status Current Visit: Yes Status: Acute Base Code: Z78.9 - OTHER SPECIFIED HEALTH STATUS Comment: 02/04/17- will remain full code during this hospitalization
--- NOTE | 2017-02-04 09:21 | Discharge Summary ---
Providers Discharge Summary Date: 02/04/17 Date of admission: 02/04/17 01:57 Expected Date of Discharge: 02/04/17 Attending physician: TIFFANY NINA Physical Exam - Vital Signs Vital Signs: Vital Signs - Last 24 Hrs Temp Pulse Pulse Resp BP Pulse Ox 02/04/17 06:13 90 18 93 L 02/04/17 02:44 18 02/04/17 02:08 98.6 F 85 114/83 94 L - General General Appearance: Alert, Oriented x3, Cooperative, No acute distress Limitations: No limitations - Head Head exam: Atraumatic, Normocephalic, Normal inspection - Eye Eye exam: Normal appearance, PERRL - ENT ENT exam: Normal exam, Mucous membranes moist, Normal external ear exam, Normal orophraynx, TM's normal bilaterally Ear exam: Normal external inspection. negative: External canal tenderness Nasal Exam: Normal inspection. negative: Discharge, Sinus tenderness Mouth exam: Normal external inspection, Tongue normal Teeth exam: Normal inspection. negative: Dental caries Throat exam: Normal inspection. negative: Tonsillar erythema, Tonsillar exudate - Neck Neck exam: Normal inspection, Full ROM. negative: Tenderness - Respiratory Respiratory exam: Normal lung sounds bilaterally, Decreased breath sounds ( bilat bases). negative: Accessory muscle use, Respiratory distress, Wheezes - Cardiovascular Cardiovascular Exam: Regular rate, Normal rhythm, Normal heart sounds Peripheral Pulses: 2+: Dorsalis Pedis (R), Dorsalis Pedis (L) - GI/Abdominal GI/Abdominal exam: Soft, Normal bowel sounds. negative: Tenderness - Extremities Extremities exam: Normal inspection, Full ROM, Normal capillary refill. negative: Tenderness - Neurological Neurological exam: Alert, CN II-XII intact, Normal gait, Oriented X3. negative : Abnormal gait, Motor sensory deficit - Psychiatric Psychiatric exam: negative: Anxious, Depressed - Skin Skin exam: Dry, Intact, Normal color, Warm, Other (healing incision left upper back from recent removal of melanoma, sutures intact) Hospitalization - Hospitalization Admission Diagnosis: 1. Acute COPD Exacerbation. - Problem List/Discharge Diagnosis (1) COPD exacerbation Status: Acute Base Code: J44.1 - CHRONIC OBSTRUCTIVE PULMONARY DISEASE W ( ACUTE) EXACERBATION Comment: 02/04/17- 66 y/o male admitted with exac COPD, 4th ED visit in 1 month for shortness of breath. CXR negative for acute process. Labs unremarkable. Responded well to breathing treatment and IV steroids. O2 remains> 88% on RA. Given presentation of symptoms after mowing lawn and outside in hot and humid temperatues with airway resistance, this may represent an asthma component of his COPD with a reactive airway to inhaled irritants such as grass and pollen. - will initate Singulair 10mg - will initate inhaled steroid - continue LAMA - follow up with pulmonology as new patient as scheduled 02/13 - COPD pathway initiated, wll change to oral steroids at time of discharge - may discharge later today should he remain stable - follow up PCP 1-2 weeks after discharge (2) DVT prophylaxis Status: Acute Base Code: [id number] - Comment: 02/04/17- nursing to encourage frequent ambulation (3) Full code status Status: Acute Base Code: Z78.9 - OTHER SPECIFIED HEALTH STATUS Comment: 02/04- will remain full code during this hospitalization - Hospitalization Course Disposition: Home, Self-Care Hospital Course: Admitting Diagnosis: 1. Acute COPD Exacerbation. History of Present Illness: 66 y/o male with CC shortness of breath and wheezing admitted with exacerbation of COPD. Past medical history includes COPD, cardiac cath, chest pain, [place] 2010, HTN, palpitations, neuropathy, GERD, bladder cancer, arthritis, melanoma, back injury Past Surgical History Tonsillecotomy - 1955 2 Hernia Repairs Hemmoroidectomy Bilateral Carpal Tunnel Right shoulder surgery Right hip - torn labrum 5 cardiac caths 2 ablasions 3 bladder biopsies Nasal deviated septum 3 shoulder 2 rt elbow rt hip melenoma surgery Prior to arrival had 2 day history of shortness of breath, felt he could breathe in but not expel all the air from his longs. Quit smoking 30 years ago. Has new patient appointment with pulmonololgy February 13. Denies any recent illness , fever, increased sputum production, or increased cough. Reports this is his 4th ER visit in 1 month for shortness of breath. The first 3 were 6-8 hours after mowing the lawn, had difficulty getting air in, was wheezing quite a bit. This last episode was sitting on the deck, the weather was hot and humid and felt he had a hard time breathing all the air out. Does not use home O2. Reports he had a full cardiac work up due to frequency of ED visits and was normal. While in the ED given nebulizer treatments, IV steroids initiated with improvement of symptoms. Denies any chest pain or discomfort. Remained afebrile with normal WBC. Admitted for obs as he continued to have some wheezing and frequency of ER visit for same symptoms. Laboratory Results WBC 7.4 K/uL (4.2-12.2) 02/04/17 06:05 RBC 4.56 M/uL (4.40-5.70) 02/04/17 06:05 Hgb 14.2 gm/dl (14.0-18.0) 02/04/17 06:05 Hct 44.9 % (42.0-52.0) 02/04/17 06:05 MCV 98.5 fl (81-97) H 02/04/17 06:05 MCH 31.1 pg (27-33) 02/04/17 06:05 MCHC 31.6 g/dl (32-36) L 02/04/17 06:05 RDW 13.4 % (11.5-14.5) 02/04/17 06:05 Plt Count 308 K/uL (130-400) 02/04/17 06:05 MPV 9.7 fl (7.4-10.4) 02/04/17 06:05 Gran % 43.0 % (47-80) L 02/04/17 00:25 Neutrophils % 83.0 % (47-80) H 02/04/17 06:05 Lymphocytes % 13.5 % (16-45) L 02/04/17 06:05 Monocytes % 0.9 % (0-9) 02/04/17 06:05 Eosinophils % 0.1 % (0-6) 02/04/17 06:05 Basophils % 0.4 % (0-6) 02/04/17 06:05 Lymphocytes 14.0 % (16-45) L 02/04/17 06:05 Monocytes 3.0 % (0-9) 02/04/17 06:05 Platelet Estimate Normal (NORMAL) 02/04/17 06:05 RBC Morphology Normal 02/04/17 06:05 PT 10.1 SECONDS (9.5-12.1) 02/04/17 00:25 INR 0.89 02/04/17 00:25 APTT 27.10 SECONDS (24.5-39.1) 02/04/17 00:25 Sodium 142 mmol/L (136-145) 02/04/17 06:05 Potassium 4.0 mmol/L (3.5-5.1) 02/04/17 06:05 Chloride 105 mmol/L (98-107) 02/04/17 06:05 Carbon Dioxide 29.2 mmol/L (22-30) 02/04/17 06:05 Anion Gap 7.8 (7-16) 02/04/17 06:05 BUN 20 mg/dL (9-20) 02/04/17 06:05 Creatinine 0.7 mg/dL (0.66-1.25) 02/04/17 06:05 Estimated GFR > 60 ml/min 02/04/17 06:05 Random Glucose 165 mg/dL (70-110) H 02/04/17 06:05 Calcium 8.7 mg/dL (8.5-10.1) 02/04/17 06:05 Total Bilirubin 0.41 mg/dL (0.2-1.3) 02/04/17 06:05 AST 23 U/L (17-59) 02/04/17 06:05 ALT 32 U/L (21-72) 02/04/17 06:05 Alkaline Phosphatase 68 U/L (38-126) 02/04/17 06:05 Creatine Kinase 68 U/L (55-170) 02/04/17 00:25 CK-MB (CK-2) 2.3 ug/L (0-6) 02/04/17 00:25 Troponin I < 0.012 ng/mL (0.00-0.034) 02/04/17 00:25 NT-Pro-B Natriuret Pep 349.00 pg/mL (<125) H 02/04/17 00:25 Total Protein 6.5 gm/dL (6.3-8.2) 02/04/17 06:05 Albumin 3.7 gm/dL (3.5-5.0) 02/04/17 06:05 Globulin 2.8 gm/dL (1.4-4.8) 02/04/17 06:05 Albumin/Globulin Ratio 1.3 (1.1-1.8) 02/04/17 06:05 Vital Signs - Last 24 Hrs Temp Pulse Pulse Resp BP BP Pulse Ox 02/04/17 06:13 90 18 93 L 02/04/17 02:44 18 02/04/17 02:08 98.6 F 85 114/83 94 L 02/04/17 01:51 98.1 F 80 18 117/75 95 02/04/17 01:24 87 18 95 02/04/17 00:49 87 20 95 02/04/17 00:20 86 20 02/04/17 00:04 98.1 F 91 H 24 132/66 93 L 02/04/17- resting in bed comfortably. Reports his breathing has improved " a ton ", no further wheezing. Is slightly short of breath with ambulation but tolerated a walk in the jones with respiratory therapy. Does have a nebulizer at home and is already taking Spiriva. Denies any further complaint. No new nursing concerns. PCP: Dr Rod Trade [employer] Secretary- pending Abnormal Labs: Abnormal Lab Results 02/04/17 02/04/17 Range/Units 06:05 06:05 MCV 98.5 H (81-97) fl MCHC 31.6 L (32-36) g/dl Neutrophils % 83.0 H (47-80) % Lymphocytes % 13.5 L (16-45) % Lymphocytes 14.0 L (16-45) % Random Glucose 165 H (70-110) mg/dL Condition at Discharge: (2) Stable Discharge Medications - Discharge Medications Prescriptions: Montelukast Sodium [Singulair] 10 mg PO QHS #30 tab Doxycycline Hyclate 100 mg PO BID #14 tab. Fluticasone Propionate [Flovent 110 Mcg] 1 puff INH RESP.Q12H #1 inhaler Prednisone [Prednisone 20Mg] 40 mg PO DAILY #10 tab Home Medications: Ambulatory Orders Albuterol Sulfate [Ventolin Hfa] 2 puff INH Q6H 01/17/17 [Last Taken 01/17/17] Amlodipine Besylate [Norvasc] 5 mg PO DAILY 01/17/17 [Last Taken 01/17/17] Aspirin 81 mg PO DAILY 01/17/17 [Last Taken 01/17/17] Atorvastatin Calcium 40 mg PO DAILY 01/17/17 [Last Taken 01/16/17] Clopidogrel Bisulfate [Clopidogrel] 75 mg PO DAILY 01/17/17 [Last Taken 01/16/17 ] Docusate Sodium [Colace] 100 mg PO ASDIR PRN 01/17/17 [Last Taken Unknown] Losartan/Hydrochlorothiazide [Losartan-Hctz 50-12.5 mg Tab] 50 mg PO DAILY 01/17 [Last Taken 01/17/17] Magnesium Oxide [Magnesium] 500 mg PO DAILY 01/17/17 [Last Taken 01/17/17] Morphine Sulfate [Morphine Sulfate ER] 15 mg PO Q6HR 01/17/17 [Last Taken ] Morphine Sulfate [Morphine Sulfate ER] 30 mg PO Q6H 01/17/17 [Last Taken ] Multivitamin [Multi-Vitamin Daily] 1 each PO DAILY 01/17/17 [Last Taken 01/17/17 ] Naproxen Sodium [Naproxen Sodium Cr] 500 mg PO BID 01/17/17 [Last Taken 01/17/17 ] Sotalol HCl [Sotalol] 80 mg PO BID 01/17/17 [Last Taken 01/17/17] Tiotropium [place] [Spiriva] 2 puff IN DAILY 01/17/17 [Last Taken 01/17/17] Acetaminophen [Tylenol 500Mg Tab] 1,000 mg PO Q6H PRN 01/18/17 [Last Taken Unknown] Albuterol Sulfate 0.083% [Neb] 2.5 mg INH RESP.Q2H PRN neb 01/18/17 [Last Taken Unknown] Cephalexin [Keflex] 500 mg PO QID #40 cap 01/18/17 [Last Taken Unknown] Albuterol Sulfate 0.083% [Neb] 2.5 mg INH RESP.Q4H.DORIAN garner 02/04/17 [Last Taken Unknown] Doxycycline Hyclate 100 mg PO BID #14 tab. 02/04/17 [Last Taken Unknown] Fluticasone Propionate [Flovent 110 Mcg] 1 puff INH RESP.Q12H #1 inhaler [Last Taken Unknown] Montelukast Sodium [Singulair] 10 mg PO QHS #30 tab 02/04/17 [Last Taken Unknown ] Prednisone [Prednisone 20Mg] 40 mg PO DAILY #10 tab 02/04/17 [Last Taken Unknown ] Discharge Plan - Discharge Instructions Activity at Discharge: Resume Usual Activities As Tolerated Diet at Discharge: Advance to Usual Diet
[2017-02-04] MEDS ORDERED: SOTALOL HCL 80 MG TABLET PO SCH (10:00)
[2017-02-04] MEDS ORDERED: ASPIRIN 81 MG CHEWABLE TABLET PO SCH (10:00)
[2017-02-04] MEDS ORDERED: ALBUTEROL SULFATE (0.083%) 2.5 MG/3 ML NEB INH SCH (10:00)
[2017-02-04] MEDS ORDERED: DOCUSATE SODIUM 100 MG CAPSULE PO PRN (10:00)
[2017-02-04] MEDS ORDERED: TIOTROPIUM BROMIDE 5 CAPSULES INH SCH (10:00)
[2017-02-04] MEDS ORDERED: MAGNESIUM OXIDE 400 MG TABLET PO SCH (10:00)
[2017-02-04] MEDS ORDERED: CLOPIDOGREL 75MG TABLET PO SCH (10:00)
[2017-02-04] MEDS ORDERED: AMLODIPINE BESYLATE 5MG TAB PO SCH (10:00)
[2017-02-04] MEDS ORDERED: ATORVASTATIN 20 MG TABLET PO SCH (10:00)
[2017-02-04] MEDS ORDERED: HYDROCHLOROTHIAZIDE 12.5 MG CAPSULE PO SCH (10:00)
[2017-02-04] MEDS ORDERED: LOSARTAN POTASSIUM 25 MG TABLET PO SCH (10:00)
[2017-02-04] MEDS ORDERED: METHYLPREDNISOLONE PF 125MG/VIAL IVP SCH (10:00)
[2017-02-04] MEDS ORDERED: FLUTICASONE HFA 110 MCG INHALER INH SCH (18:00)
[2017-02-04] MEDS ORDERED: MONTELUKAST SODIUM 10MG TABLET PO SCH (22:00)
--- NOTE | 2017-02-05 10:23 | RADIOLOGY REPORT ---
EXAM: CHEST 2 VIEWS HISTORY: DIFFICULTY IN BREATHING FOR A FEW DAYS WITH ASSOCIATED WHEEZING. COPD HISTORY. BLADDER CARCINOMA AND MELANOMA HISTORY. TECHNIQUE: Upright PA and lateral views of the chest. COMPARISON: Two-view chest radiographic examination dated 01/17/2017. FINDINGS: The heart projects mildly enlarged but without pulmonary venous hypertension. The thoracic aorta is tortuous and atherosclerotic. No new confluent airspace opacity is seen nor is there costophrenic angle blunting or pneumothorax. There are no degenerative changes of the visualized spine. Surgical anchors are again noted in the proximal humerus. IMPRESSION: NO RADIOGRAPHIC EVIDENCE OF ACUTE CARDIOPULMONARY DISEASE WITHOUT SIGNIFICANT CHANGE SINCE 01/17/2017. JOB NUMBER: [id number] MTDD
== END 2017-02-04 13:30 | disposition home or self-care (01) ==
LOC: ER 23:55 → MEDSURG 02-04 01:57
PROVIDERS: ADMIT Family Medicine; ATTEND Family Medicine
DX: J44.1 Chronic obstructive pulmonary disease with (acute) exacerbation (principal); I10 Essential (primary) hypertension; Z78.9 Other specified health status
CPT/HCPCS: 93041; 99285 ×2; 94760; 96374; 82550; 85025; 85730; 85610; 82553; 84484; 80048; 80053; 85027; 83880; 71020; 94640 ×4; 94761; 93005; 93010; G0378; J3490; 99236; J2930; J7613